=== PATIENT | male | born 1965 | race Caucasian/White ===

== ENCOUNTER 2023-06-07 08:24 | Observation (INO) ==
--- NOTE | 2023-05-04 15:18 | PAT Medication Instructions ---
Medication Instructions Date of Service May 04, 2023 Home Medications losartan 25 mg tablet 50 mg PO QAM multivitamin 1 tab PO QAM rosuvastatin 20 mg tablet 20 mg PO QAM DO NOT take the morning of surgery losartan 25 mg tablet 50 mg PO QAM multivitamin 1 tab PO QAM Take morning of surgery With a small sip of water, OTHERWISE NOTHING TO EAT OR DRINK AFTER MIDNIGHT: rosuvastatin 20 mg tablet 20 mg PO QAM Other Notes If you have any questions please call us at [phone] or [phone] or [phone] or [phone]
--- NOTE | 2023-05-12 14:39 | Anesthesiology Consultation ---
Date of Service May 12, 2023 Assessment & Plan (1) Encounter for pre-operative examination: - Infectious disease screening: Per assessment on 05/12/23: No known infectious disease contacts or current infectious disease symptoms. No noted recent Covid positive test result. - Outpatient joint assessment: Pt currently scheduled for inpatient pathway. If surgeon requests review for outpatient joint pathway, patient is an acceptable candidate for outpatient joint program from anesthesia standpoint pending surgeon's office assessment that patient is motivated, has good support and completes [facility] Day Joint Program preop requirements. - Cardiology visit (03/21/23): "Possible future hip surgery. Estimated risk of adverse outcome with non-cardiac surgery is low. Blood pressure control mandated prior to surgery." > BP 114/78 at PAT visit 05/12/23. Chart Review Chart Review: Acceptable Risk for Surgery and Patient seen in Pre Admission Testing Teaching & Discussion Pre-Anesthesia Teaching/Discussion Notes: Instructed NPO after midnight before surgery,except medications with 15 cc of water. Medication instructions provided according to the [facility] guidelines. History Surgery Operation Date: 06/07/23 08:50 Proposed Procedures p Left Total Hip Arthroplasty - Kamaljit Vela MD Height/Weight Height: 5 ft 8 in Weight: 80.9 kg Allergies Allergy/AdvReac Type Severity Reaction Status Date / Time cefazolin [From [facility]] Allergy Unknown Itchiness Verified 05/12/23 14:48 Medications Home Medications Medication Instructions Recorded Confirmed Last Taken losartan 25 mg tablet 50 mg PO QAM 05/02/23 05/02/23 Unknown multivitamin 1 tab PO QAM 05/02/23 05/02/23 Unknown rosuvastatin 20 mg tablet 20 mg PO QAM 05/02/23 05/02/23 Unknown Past Medical History Medical History Ascending aorta enlargement Echo 11/2022: Proximal ascending thoracic aorta mildly enlarged (4.0 cm) History of COVID-2021, symptoms resolved Hyperlipidemia Hypertension Osteoarthritis of left hip Exercise / Class Metabolic Activity II 4-5 Yardwork/Stairs/Walk up hill (one FS: No CP, no SOB) Past Surgical History Surgical History History of colonoscopy History of dental surgery x2 dental implants History of meniscectomy of left knee Hx of meniscectomy of right knee Past Anesthesia History No Hx of Anesthesia Complications and No Family Hx of Anesthesia Complications History of PONV No Hx of PONV and No Hx of Motion Sickness Social History Smoking Status: Former smoker Do You Dip or Chew Tobacco: No Smoking End Date: Quit 26 years ago (Hx 1 PPD) Hx Alcohol Use: Yes alcohol intake frequency: a few times a week Hx Substance Use: No substance use type: does not use Review of Systems Patient denies chest pain, shortness of breath, dyspnea on exertion, fever, chills, cough, wheezing, palpitations. Physical Exam Vital Signs BP 114/78 P 60 TEMP 98.0 SP02 97%RA RESP 16 Physical Full cervical extension range of motion. Full TMJ range of motion. TMD > 3.5 finger breaths Mallampati Score 1 Dentition: intact, + crowns, + implants (including upper front left) Lungs: clear throughout to auscultation Cardiac: regular rate and rhythm, no murmurs noted Spine: normal Carotid arteries: negative bruit Extremities: no LE edema Lab Results Anesthesia Preop Results Results Anesthesia Widget: WBC 6.64 K/ul (4.8-10.8) 05/12/23 Hgb 14.3 g/dl (14.0-18.0) 05/12/23 Hct 41.4 % (42.0-52.0) L 05/12/23 Plt 305 K/uL (130-400) 05/12/23 Na 138 mmol/L (136-145) 05/12/23 K 3.8 mmol/L (3.5-5.1) 05/12/23 Cl 104 mmol/L (98-107) 05/12/23 CO2 26 mmol/L (21-32) 05/12/23 BUN 12 mg/dl (6-23) 05/12/23 Creat 0.82 mg/dl (0.6-1.4) 05/12/23 Glucose Level 86 mg/dl (70-99(Fasting)) 05/12/23 PT 10.6 Seconds (9.0-12.0) 05/12/23 PTT 29 Seconds (21-31) 05/12/23 INR 1.0 (0.9-1.1) 05/12/23 Blood Type A Positive 05/12/23 Antibody Screen NEGATIVE 05/12/23 Testing Electrocardiogram Date: 03/21/23 Findings: + NSR @ (64) Chest X-Ray Date: 05/12/23 FINDINGS: The lungs are clear. Cardiac silhouette is top normal in size. No pleural effusions. No pneumothorax. IMPRESSION: No acute process. Echocardiogram Date: 12/02/22 LVEF 55-59%. LV wall motion is normal. Mildly increased concentric LV wall thickness. Grade 1 diastolic dysfunction. No significant valvular disease. Proximal ascending thoracic aorta mildly enlarged (4.0 cm). Stress Test Date: 03/26/19 Type: exercise Stress echo was negative for inducible ischemia. Exercise capacity is above average. Frequent PVCs recorded near peak exercise. 96% MPHR. 13.2 METS. Rest study: LVEF 55-59%. No significant valvular disease. Aortic root and proximal ascending aorta are borderline enlarged.
[~2023-06-07 08:24] MED LIST: BUPIVACAINE 0.5 % 5 MG/1 ML PF 10ML VIAL ONE
[2023-06-07] MEDS: dexAMETHasone 4 MG TAB PO SCH (09:29)
[2023-06-07] MEDS: CeleBREX 200 MG CAP PO SCH (09:29)
[2023-06-07] MEDS: FAMOTIDINE 20 MG TAB PO SCH (09:29)
[2023-06-07] MEDS: ACETAMINOPHEN 500 MG TAB PO SCH ×2 (09:29→15:44)
[2023-06-07] MEDS: METOCLOPRAMIDE HCL 10 MG TABLET PO SCH (09:29)
[2023-06-07] MEDS: LR 500ML BOLUS, THEN 15ML/HR IV SCH (09:30)
[2023-06-07] MEDS: Scopolamine 1 MG TDSY TD SCH (09:30)
[2023-06-07] MEDS: LR 60ML/HR IV SCH (09:31)
--- NOTE | 2023-06-07 09:55 | History & Physical Bridge Note ---
Date of Service June 07, 2023 History & Physical Bridge Note I have examined the patient, reviewed the History & Physical and in the interval since the performance of the History & Physical I have noted the following changes of clinical significance: no changes noted
[2023-06-07] MEDS ORDERED: Nursing to Pharmacy Communication SCH (10:15)
[2023-06-07] MEDS ORDERED: fentaNYL citrate PF 100 MCG/2 ML VIAL ONE (11:43)
[2023-06-07] MEDS ORDERED: MIDAZOLAM HCL 1 MG/ML 2ML VIAL ONE (11:43)
[2023-06-07] MEDS ORDERED: ONDANSETRON INJ 2 MG/ML 2 ML VIAL ONE (11:44)
[2023-06-07] MEDS ORDERED: DEXAMETHASONE SOD INJ 4 MG/ML VIAL ONE (11:44)
[2023-06-07] MEDS ORDERED: PROPOFOL IV EMULSION 10 MG/ML 20 ML VIAL IV ONE ×3 (11:44→12:40)
[2023-06-07] MEDS ORDERED: ROCURONIUM BROMIDE 10 MG/ML 5 ML VIAL IV ONE (11:44)
[2023-06-07] MEDS ORDERED: LIDOCAINE 2% 2 ML VIAL/AMP(20MG/ML) INFIL ONE (11:44)
[2023-06-07] MEDS: TRANEXAMIC ACID 1,000 MG **IV Pre-op IV SCH (11:54)
--- OUTSIDE RECORDS SUMMARY | 2023-06-07 12:21 | External Medical Summary | Summary of Care ---
Author Name Unknown Organization [facility] Address [address] [place] [address] Phone [phone] Care Team Providers Care Education Site Manager Name Role Phone Gary Fisher Primary Care Provider Reason for Visit * Reason Comments Acute Pt here for a sunbur n from 2 weeks ago. Pt states that it is better now. Concern was that the burn was located in the area that he applied sun block to. Encounter Details Date Type Department Care Team (Late st Contact Info) Description 05/13/2023 11:00 AM EDT Office Visit Family [facility] [address] [facility] [place] [address] Estrella Johnston CRNP [address] [facility] [place] [id number] Skin irritation*; HTN, goal below 140/90 Allergies Active Allergy Reactions Criticality Noted Date Comments Cefazolin Sodium Itching 04/08/2010 rash documented as of this encounter (statuses as of 05/13/2023) Medications Medication Sig Dispensed Refills Start Date End Date Status MULTIVITAMINS PO CAPS None Entered 0 Active Rosuvastatin Calcium 20 MG Oral Tablet (Crestor) Take 1 Tablet by mouth daily. 30 Tablet 11 04/30/2022 Active Benzonatate 100 MG Oral Capsule (Tessalon Perles)Indications :Viral URI with cough Take 1 Capsule by mouth 3 times a day as needed for Cough. Do not cut, crush, or chew. 50 Capsule 1 01/04/2023 Active Additional Information Patient not taking.Reported on 03/21/2023 Losartan Potassium 50 MG Oral Tablet (Cozaar)Indication s:HTN, goal below 140/90 Take 1 Tablet by mouth in the morning. 90 Tablet 3 03/21/2023 Active Triamcinolone Acetonide 0.1 % External Cream (Aristocort)Indica tions:Skin irritation Apply topically to affected area 2 times a day. 45 g 5 05/13/2023 Active documented as of this encounter (statuses as of 05/13/2023) Active Problems Problem Noted Date Diagnosed Date Hip pain, left 03/17/2021 Testicular pain, left 03/17/2021 Family history of ischemic heart disease 021 Dyslipidemia, goal LDL below 70 05/14/2020 Family history of cardiomyopathy 05/14/2020 HTN, goal below 140/90 05/14/2020 ADVANCE DIRECTIVE INFORMATION 01/27/2005 Overview: No, Advance Directive brochure given to patient. Major depressive disorder 01/27/2005 Overview: ICD-10 update of inactive term documented as of this encounter (statuses as of 05/13/2023) Resolved Problems Problem Noted Date Diagnosed Date Resolved Date Dyslipidemia, goal to be determined 02/13/2009 12/23/2020 Overview: Per Lipid Taxonomy. Mixed dyslipidemia 03/15/2005 9 Overview: Per Lipid Taxonomy. Major depressive disorder 02/15/2005 Overview: dr. cox (psychiatrist) at [facility] ICD-10 update of inactive term ACUTE PHARYNGITIS 07/14/2004 01/27/2005 DYSFUNCT EUSTACHIAN TUBE 07/14/200409/2016 DYSEQUILIBRIUM 07/14/2004 07/05/2016 S/P STREP SORE THROAT 07/14/20042004 NO SIGNIFICANT MED HX 11/30/20012004 documented as of this encounter (statuses as of 05/13/2023) Immunizations Name Administration Dates Next Due Covid-19 Ad26, Single Dose (Genie/J&J) 05/11/2020 H1N1 2009 Influenza, IM 01/28/2009 Seasonal Influenza, PF, 6 M & above, IM , (FluLaval or Fluzone) 12/23/2022 Seasonal Influenza, Quadriva lent, No Preserve, IM 12/05/2020,12/16/2017,12/20/2014 Seasonal Influenza, Split, I IV3, With Preserve, Inj 12/12/2012,12/06/2011,01/05/2010, 0 10 TDAP (age 11 and older)(Adacel) 03/19/2009,08/23 documented as of this encounter Social History Tobacco Use Types Packs/Day Years Used Date Smoking Tobacco: Former Cigarettes 1 10 1 - 11/30/1996 Smokeless Tobacco: Never Tobacco Cessation:Counseling Given: Not Answered Alcohol Use Standard Drinks/Week Comments Yes 0 (1 standard drink = 0.6 oz pur e alcohol) once a week PHQ-2 Answer Date Recorded PHQ-2 Score 6 04/12/2019 Hunger Vital Sign Answer Date Recorded Within the past 12 months, y ou worried that your food would run out before you got the money to buy more. Never true 05/12/19 24 Within the past 12 months, t he food you bought just didn't last and you didn't have money to get more. Never true 05/12/2023 Sex and Gender Information Value Date Recorded Sex Assigned at Male 05/12/2023 9:30 PM EDT Gender Identity Male 05/12/2023 9:30 PM EDT Sexual Orientation Straight 05/12/2023 9: 30 PM EDT Job Start Date Occupation Industry Not on file Not on file Not on file documented as of this encounter Last Filed Vital Signs Vital Sign Reading Time Taken Comments Blood Pressure 124/72 05/13/2023 10:58 AM EDT Pulse 76 05/13/2023 10:58 AM EDT Temperature 36.4 C (97.6 F) 05/13/2023 10:58 AM E DT Respiratory Rate 16 05/13/2023 10:58 AM EDT Oxygen Saturation 96% 05/13/2023 10:58 AM EDT Inhaled Oxygen Concentration - - Weight 80.8 kg (178 lb 3.2 oz) 05/13/2023 10:58 AM EDT Height 172.7 cm (5' 8") 05/13/2023 10:58 AM EDT Body Mass Index 27.1 05/13/2023 10:58 AM EDT documented in this encounter Progress Notes * Estrella Johnston CRNP - 05/13/2023 11:09 AM EDT Images from the original note were not included. Follow up Family Medicine Visit History of Present Illness Fred Capone is a very pleasant 57 year old male with PMH listed below presenting with acute. He was on vacation, sitting in the pugh without T shirt for 3 hours. After exposed to sun, he applied Neutrogena mineral Suncreen on arms and face/neck and immediately felt burning. Used same Suncreen last year without any issue. He continue to use sunscreen every day on vacation due to expose to sun. No blisters but painful and burning sensation. Whole skin sloughed off. Prescribed prednisone, silvadene at urgent care, but Rx never got filled so didn't take any med. 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 Tobacco Use Smoking status: Former Current packs/day: 0.00 Average packs/day: 1 pack/day for 10.0 years (10.0 ttl pk-yrs) Types: Cigarettes Start date: 11/30/1986 Quit date: 11/30/1996 Years since quittin.4 Smokeless tobacco: Never Vaping Use Vaping Use: Never used Substance and Sexual Activity Alcohol use: Yes Comment: once a week Drug use: No Sexual activity: Yes Partners: Female Other Topics Concern Not on file Social History Narrative Not on file Social Determinants of Health Financial Resource Strain: Not on file Food Insecurity: No Food Insecurity (05/12/2023) Hunger Vital Sign Worried About Running Out of Food in the Last Year: Never true Ran Out of Food in the Last Year: Never true Transportation Needs: Not on file Physical Activity: Not on file Stress: Not on file Social Connections: Not on file Intimate Partner Violence: Not on file Housing Stability: Not on file PMH: Past Medical History: Diagnosis Date Depressive disorder, not elsewhere classified 2004 dr. cox (psychiatrist) at [facility] Infectious mononucleosis 1987 Dehydration, hospitalized Plantar fasciitis Past Surgical History: Procedure Laterality Date COLONOSCOPY, DIAGNOSTIC (RECTUM) 03/21/2012 COLONOSCOPY FLEXIBLE PROXIMAL DIAGNOSTIC performed by Scott Arias MD at [facility] COLONOSCOPY, DIAGNOSTIC (RECTUM) 09/07/2016 normal, repeat 5 yrs/COLONOSCOPY FLEXIBLE PROXIMAL DIAGNOSTIC performed by Brad Torres DO at [facility] KNEE CARTILAGE, MED/LATERAL 01/30/2007 left medial partial meniscectomy, arthroscopic Outpatient Medications Marked as Taking for the 05/13/23 encounter (Office Visit) with Estrella Johnston CRNP Medication Sig Losartan Potassium 50 MG Oral Tablet (Cozaar) Take 1 Tablet by mouth in the morning. Rosuvastatin Calcium 20 MG Oral Tablet (Crestor) Take 1 Tablet by mouth daily. MULTIVITAMINS PO CAPS None Entered Review of patient's allergies indicates: Allergen Reactions Ancef [Cefazolin Sodium] Itching rash Most Recent Immunizations Administered Date(s) Administered Covid-19 Ad26, Single Dose (Genie/J&J) 05/11/2020 H1N1 2009 Influenza, IM 01/28/2009 Seasonal Influenza, PF, 6 M & above, IM , (FluLaval or Fluzone) 12/23/2022 Seasonal Influenza, Quadrivalent, No Preserve, IM 12/05/2020 Seasonal Influenza, Split, IIV3, With Preserve, Inj 12/12/2012 TDAP (age 11 and older)(Adacel) 03/19/2009 Review of Systems: Physical Exam BP 124/72 (BP Site: Left Arm, BP Position: Sitting, BP Cuff Size: Regular) | Pulse 76 | Temp 36.4 C (97.6 F) (Tympanic) | Resp 16 | Ht 1.727 m (5' 8") | Wt 80.8 kg (178 lb 3.2 oz) | SpO2 96% | BMI 27.10 kg/m | BSA 1.97 m Physical Exam Skin: Comments: Erythema above area. No drainage or pustule. Extensive scaling noted on b/l forearms. Seepic. Assessment and Plan 1. Skin irritation Secondary to sunburn/contact dermatitis to sunscreen No signs of skin infection today - Triamcinolone Acetonide 0.1 % External Cream (Aristocort); Apply topically to affected area 2 times a day. Dispense: 45 g; Refill: 5 2. HTN, goal below 140/90 Cont losartan 50 mg Losartan increased from 25 to 50, but Iess likely source of skin abnormality as no systemic effectsnoted Wrap-Up I have advised the patient to call our office with any worsening or new symptoms. I spent a total of 20-29 minutes (exact time 25 mins) on the date of service in preparation, delivery, and documentation of the care provided to Fred Capone excluding any time spent in the performance of separately billed services. Estrella Johnston, MSN, EULA [facility] documented in this encounter Plan of Treatment Upcoming Encounters Date Type Department Care Team (Late st Contact Info) Description 12/05/2023 8:00 AM EDT Imaging Radiology [address] [address] Scheduled Procedures Name Priority Associated Diagnoses Date/Ti me COLONOSCOPY FLEXIBLE PROXIMA L DIAGNOSTIC Recall History of colonic polyps Health Maintenance Due Date Last Done Comments Albumin/Creatinine Ratio 09/30/1983 Hepatitis C Screening 09/30/1983 Hepatitis B (1 of 3 - 19+ 3-dose series) 1984 Zoster Vaccines (1 of 2) 09/30/2015 Depression Screening 04/12/2020 04/12/2019 COLONOSCOPY-EVERY 5 YRS AGES 18-100 09/07/2021 09/07/2016, 09/07/2016, 03/21/2012, Additional history exists GFR 01/12/2022 01/12/2021, 03/01, 12/26/2013, Additional history exists COVID-19 Vaccine (2 - 2022- season) 2022 05/11/2020 Diabetes Screening 01/13/2024 01/12/2021, 1 03/14/2020, 03/19/2019, Additional history exists Lipid Panel 12/03/2027 12/02/2022, 12, 01/12/2021, Additional history exists DTaP,Tdap,and Td Vaccines (4 - Td or Tdap) 12/17/2028 12/17/2018, 03/19/2009, 08/23/2008 Influenza Vaccine (FLU shot) Completed , 12/05/2020, 12/30/2019, Additional history exists GARDASIL-HPV IMMUNIZATION SERIES Aged Out No longer eligible based on patient's age to complete this topic MENINGOCOCCAL (MENACTRA/MENVEO) Aged Out No longer eligible based on patient's age to complete this topic Pneumococcal Vaccine: Pediatrics (0 to 5 Years) and At-Risk Patients (6 to 64 Years) Aged Out No longer eligible based on patient's age to complete this topic documented as of this encounter Medical Devices Not on filedocumented as of this encounter Visit Diagnoses Diagnosis Skin irritation- Primary Unspecified disorder of skin and subcutaneous tissue HTN, goal below 140/90 Unspecified essential hypertension documented in this encounter Care Teams Education Site Manager Relationship Specialty Start Date End Date Gary Fisher DO [address] [place] [address] PCP - General Family Medicine 12/23/20 documented as of this encounter
--- OUTSIDE RECORDS SUMMARY | 2023-06-07 12:21 | External Medical Summary | Summary of Care ---
Author Name Unknown Organization [facility] Address [address] [facility] [place] [address] Phone [phone] Care Team Providers Care Director For [employer] Name Role Phone Gary Fisher Primary Care Provider Reason for Visit * Reason Comments Medication Refill Encounter Details Date Type Department Care Team (Late st Contact Info) Description 05/23/2023 Refill Cardiology, [facility] [address] [place] [address] Rita Blum PA-C [address] [place] [address] Dyslipidemia, goal LDL below 70* Allergies Active Allergy Reactions Criticality Noted Date Comments Cefazolin Sodium Itching 04/08/2010 rash documented as of this encounter (statuses as of 05/23/2023) Medications Medication Sig Dispensed Refills Start Date End Date Status MULTIVITAMINS PO CAPS None Entered 0 Active Benzonatate 100 MG Oral Capsule (Tessalon Perles)Indicatio ns:Viral URI with cough Take 1 Capsule by mouth 3 times a day as needed for Cough. Do not cut, crush, or chew. 50 Capsule 1 01/04/2023 Active Additional Information Patient not taking.Reported on 03/21/2023 Losartan Potassium 50 MG Oral Tablet (Cozaar)Indicati ons:HTN, goal below 140/90 Take 1 Tablet by mouth in the morning. 90 Tablet 3 03/21/2023 Active Triamcinolone Acetonide 0.1 % External Cream (Aristocort)Sofia cations:Skin irritation Apply topically to affected area 2 times a day. 45 g 5 05/13/2023 Active Rosuvastatin Calcium 20 MG Oral Tablet (Crestor)Indicat ions:Dyslipidemi a, goal LDL below 70 Take 1 Tablet by mouth daily. 90 Tablet 3 05/23/2023 Active Rosuvastatin Calcium 20 MG Oral Tablet (Crestor) Take 1 Tablet by mouth daily. 30 Tablet 11 04/30/2022 Discontinue d(Refill) documented as of this encounter (statuses as of 05/23/2023) Active Problems Problem Noted Date Diagnosed Date [...] as of this encounter (statuses as of 05/23/2023) Resolved Problems Problem Noted Date Diagnosed Date Resolved Date Dyslipidemia, goal to be determined 02/13/2009 12/23/2020 Overview: Per Lipid Taxonomy. Mixed dyslipidemia 03/15/2005 9 Overview: Per Lipid Taxonomy. Major depressive disorder 02/15/2005 Overview: dr. cox (psychiatrist) at [facility] ICD-10 update of inactive term ACUTE PHARYNGITIS 07/14/2004 01/27/2005 DYSFUNCT EUSTACHIAN TUBE 07/14/200409/2016 DYSEQUILIBRIUM 07/14/2004 07/05/2016 S/P STREP SORE THROAT 07/14/20042004 NO SIGNIFICANT MED HX 11/30/20012004 documented as of this encounter (statuses as of 05/23/2023) Immunizations Name Administration Dates Next Due Covid-19 [...] 10 1 - 11/30/1996 Smokeless Tobacco: Never Alcohol Use Standard Drinks/Week Comments Yes 0 [...] on file documented as of this encounter Miscellaneous Notes * Telephone Encounter - Rita Blum PA-C - 05/23/2023 1:19 PM EDTSigned Prescriptions: Disp Refills Rosuvastatin Calcium 20 MG Oral Tablet (Cr*90 Tab*3 Sig: Take 1 Tablet by mouth daily. Authorizing Provider: RITA BLUM * Telephone Encounter - Temi Basilio CMA - 05/23/2023 1:17 PM EDTPending Prescriptions: Disp Refills Rosuvastatin Calcium 20 MG Oral Tablet (Cr*90 Tab*3 Sig: Take 1 Tablet by mouth daily. * Telephone Encounter - Temi Basilio CMA - 05/23/2023 1:17 PM EDT Did you pend patient's preferred pharmacy and medication before forwarding?yes Pharmacy: [facility] Pending Prescriptions: Disp Refills Rosuvastatin Calcium 20 MG Oral Tablet (C*90 Tab*3 Sig: Take 1 Tablet by mouth daily. Last Visit: 03/21/2023 (in office), Visit date not found (telemedicine) Next Visit: Visit date not found If no future appointments scheduled, and last appointment is greater than a year ago, please schedule patient for a follow-up appointment Last date the medication was ordered: 04-30-2022 Is this request for a controlled substance?No Urine Drug Screen:No results found for this or any previous visit. Patient Phone Numbers Labs: Lab Results Component Value Date/Time CREAT 1.0 01/12/2021 07:48 AM CREAT 1.0 03/19/2019 08:06 AM POTASSIUM 4.6 01/12/2021 07:48 AM POTASSIUM 4.6 03/19/2019 08:06 AM TSH 2.47 12/26/2013 04:57 PM LDLCALC 85 12/02/2022 08:01 AM LDLCALC 143 (H) 03/19/2019 08:06 AM LDLDIRECT NOT APPLICABLE 03/19/2019 08:06 AM LDLDIRECT 113 (H) 04/03/2009 12:46 PM ALT 27 12/02/2022 08:01 AM ALT 25 03/19/2019 08:06 AM HGBA1C 5.8 (H) 01/12/2021 07:48 AM documented in this encounter Plan of Treatment Upcoming Encounters Date Type Department Care Team (Late st Contact Info) Description 12/05/2023 8:00 AM EDT Imaging Radiology [address] [place] [address] Scheduled Procedures Name Priority Associated Diagnoses [...] Additional history exists COVID-19 Vaccine (2 - 2022-24 season) 2022 05/11/2020 Diabetes Screening 01/13/2024 01/12/2021, 1 03/14/2020, 03/19/2019, Additional history exists Lipid Panel 12/03/2027 12/02/2022, 12/, 01/12/2021, Additional history exists DTaP,Tdap,and Td Vaccines [...] as of this encounter Visit Diagnoses Diagnosis Dyslipidemia, goal LDL below 70- Primary Other and unspecified hyperlipidemia documented in this encounter Care Teams Director For [employer] Relationship Specialty Start Date End Date Gary Fisher DO [address] [place] [id number] PCP - General Family Medicine 12/23/20 documented as of this encounter
[2023-06-07] MEDS: ceFAZolin 2,000 MG/15 ML IV PUSH IV ONE (12:28)
[2023-06-07] MEDS ORDERED: PHENYLEPHRINE 100MCG/ML 10ML SYR IV ONE (12:42)
[2023-06-07] MEDS ORDERED: ePHEDrine sulfate 50 MG/5 ML SYR ONE (12:51)
[2023-06-07] MEDS: BUPIVACAINE/EPINEPHRINE 0.5% MPF 1:200,000 30 ML VIAL ONE (13:05)
--- NOTE | 2023-06-07 13:54 | Operative Report ---
PG Post Operative Report Pre & Post Diagnosis Operation Date: 06/07/23 10:40 Pre-Op Diagnosis: Left Hip Advanced Degenerative Joint Disease Post-Op Diagnosis: Left Hip Advanced Degenerative Joint Disease I identified the patient and participated in the time-out.: Yes Procedure Operation Date: 06/07/23 10:40 Actual Procedures p Left Total Hip Arthroplasty, Uncemented(Left) - Kamaljit Vela MD Surgeon Kamaljit Vela MD Scheduling Clerk Jose Vivar PA-C Estimated Blood Loss 100 Findings Consistent with Post-Op Diagnosis Operative findings were advanced left hip DJD. He did grade 4 [id number] disease the femoral head and acetabulum. Moderate-sized joint effusion. Specimens Left femoral head sent for pathology. 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 X-rays show advanced hip arthritis with significant progression over the past year. He elected proceed with total hip arthroplasty. Description of Procedure Operative implants consist of: 1. Biomet G7 size 56 mm acetabular shell. 2. 6.5 cancellous acetabular screws 1 of 35 mm length and 1 to 25 mm length. 3. Bailey hole ply cutter. 4. Highly cross-linked polyethylene liner with a 56 mm outer diameter and 36 mm inner diameter. 5. DePuy Corail size 10 KLA femoral stem. 6. +5/36 mm ceramic articular ball. The patient was taken the operating, identified, placed on the operating table in the supine position but all contact areas were appropriately padded. IV antibiotics tried by anesthesia team. A spinal anesthetic and been implemented holding area. Patient is then placed in the right lateral decubitus position. An axillary roll was placed. Stulberg hip positioner was used for positioning. The left hip and leg were then prepped and draped in usual sterile fashion. A posterolateral approach to the left hip was then performed to a curvilinear incision centered over the greater trochanter. Sharp dissection was carried through subcutaneous tissue down of the IT band gluteal fascia but the IT band gluteal fascia was sized longitudinally in line with skin incision. The unde rlying greater bursa was excised. The piriformis and external rotators along with the posterior hip joint capsule were then released from the posterior aspect the hip as a single layer. Hip was internally rotated and dislocated. A femoral neck osteotomy cut was made with Final Cut 15 mm above the lesser trochanter. Femoral head was removed and sent for pathology. The femur was retracted anteriorly. Attention drawn the acetabulum. The acetabular labrum was excised. The pulmonary fat was excised. Sequential reaming the acetabular was then performed again with a size 45 reamer and progre ssing up to a 55 reamer. I then reamed a little bit with a 56 reamer and then placed a 56 mm Biomet cup in about 40 degrees lateral opening and 20 degrees of anteversion. It was fixed with two 6.5 cancellous acetabular screws. Trial liner was placed. Attention drawn the femur. The proximal femur was entered with a [employer] cutter followed by canal finder. I then broached beginning with size 8 progressing up to a 10. We got excellent fitted to 10. I did not think I could get 11 down safely. That we trialed the hip and the +5 articular ball seem to recreate soft tissue tension appropriately . It was fully stable full extent chin and external rotation and flexion to 90 degrees internal Tatian over 50 degrees. Leg lengths seemed pretty equal. I was aware that may lengthen him slightly as he is got hip disease on the other side will likely need that done in the future. We elect to place these implants. All trial implants were removed. An apex hole ply cutter was placed. Highly crop farmers ss-linked polyethylene liner was placed. A size 10 KLA femoral stem was impacted in position. +5/36 mm ceramic articular ball was placed. Hip was located and once again found to be stable. Attention drawn toward closing. The wound was irrigated coconuts pulsatile lavage solution. I did inject locally with 60 cc of half percent Marcaine with epinephrine. Patient did receive 1 g tranexamic acid at the beginning of the surgery. The piriformis injection rotators along with the posterior hip joint capsule were then repaired as a single layer with #2 Tycron suture through drill holes in the trochanter. The IT band gluteal fascia then closed in 1 PDS suture running fashion. Subcutaneous tissue was then closed in 2 layers the deep layer #1 Vicryl suture the subcutaneous tissue with 2-0 Dexon suture in a buried interrupted fashion the skin was closed skin tom. Leg was then cleaned and dried a sterile dressing with Xeroform, 4 fours, ABD pad and foam tape was applied. The patient then transferred to the recovery room in stable condition. Patient tolerated the procedure well and there were no complications. Jose Vivar, my physician actuarial assistant, was present for the entire procedure. His assistance was essential and required for appropriate patient positioning, prepping and draping, surgical exposure, performing the technical details of the operation, placement the implants, closure of the wound, and placement of the sterile bandage. I attest to the content of the Intraoperative Record and any orders documented therein. Any exceptions are noted below.
--- NOTE | 2023-06-07 14:33 | XRay Report ---
AP PELVIS, CROSSTABLE LATERAL LEFT HIP History: Left total hip arthroplasty. Degenerative arthritis. Postop. FINDINGS: The patient is status post a left total hip arthroplasty. The hardware is intact. No fractu re or dislocation. Skin tom are in place. IMPRESSION: Left total hip arthroplasty. No evidence for hardware complication. ACT 112: Negative or not required by law. Electronically signed by: Sheng Harmon M.D. 06/07/2023 2:32 PM
--- NOTE | 2023-06-07 14:52 | Anesthesiology Progress Note ---
Date of Service June 07, 2023 Anesthesia Post Procedure Vital Signs Vital Signs: Temp Pulse Resp BP Pulse Ox O2 Del Method O2 Flow Rate 06/07/23 14:45 76 20 129/92 97 Room Air 06/07/23 14:35 83 18 132/94 98 Room Air 06/07/23 14:25 36.3 C L 81 16 139/90 95 Room Air 06/07/23 14:15 79 12 135/82 95 Room Air 06/07/23 14:05 77 16 130/77 100 Oxymask 4 06/07/23 13:55 87 16 146/88 H 95 Oxymask 4 06/07/23 13:45 36.2 C L 100 H 16 130/75 98 Oxymask 4 06/07/23 08:57 36.8 C 69 20 147/90 H 100 Room Air Transfer of Care Handoff Completed per policy Notes Mental Status: alert / awake / arousable Patient Amnestic to Procedure: Yes Nausea / Vomiting: adequately controlled Pain: adequately controlled Airway Patency, RR, SpO2: stable & adequate BP & HR: stable & adequate Hydration State: stable & adequate Neuraxial Anesthesia: was administered and sensory block is resolving Anesthetic Complications: no major complications apparent
[2023-06-07] MEDS ORDERED: METOCLOPRAMIDE HCL INJ 5 MG/ML 2 ML VIAL IV PRN (15:02)
[2023-06-07] MEDS ORDERED: ACETAMINOPHEN 500 MG TAB PO SCH (15:02)
[2023-06-07] MEDS ORDERED: MAGNESIUM HYDROXIDE SUSP 30 ML UDC PO PRN (15:02)
[2023-06-07] MEDS ORDERED: NALOXONE HCL 0.4 MG/1 ML VIAL/CARP IV PRN (15:02)
[2023-06-07] MEDS ORDERED: bisacodyL 10 MG SUPP PR PRN (15:02)
[2023-06-07] MEDS ORDERED: HYDROmorphone INJ 0.5 MG/0.5 ML SYR IV PRN (15:02)
[2023-06-07] MEDS ORDERED: ALUMINUM/MAGNESIUM SUSP 30 ML UDC PO PRN (15:02)
[2023-06-07] MEDS: SODIUM CHLORIDE 0.9% 1,000 ML IV SCH (15:12)
[2023-06-07] MEDS: Scopolamine CHECK PATCH PLACEMENT SCH (15:13)
[2023-06-07] MEDS: KETOROLAC 30 MG/ML VIAL IV SCH (15:45)
[2023-06-07] MEDS: ASCORBIC ACID 500 MG TAB PO SCH (17:26)
[2023-06-07] MEDS: traMADol HCL 50 MG TABLET PO PRN (18:04)
[2023-06-07] MEDS: TRANEXAMIC ACID / 0.7% NACL 1,000 MG/100 ML BAG IV SCH (20:35)
[2023-06-07] MEDS: diphenhydrAMINE Capsule 25 MG CAP PO PRN (20:55)
[2023-06-07] MEDS: DOCUSATE SODIUM 100 MG CAP PO SCH (20:57)
[2023-06-07] MEDS: SENNA 8.6 MG TAB PO SCH (20:57)
[2023-06-07] MEDS: ASPIRIN 81 MG ECTAB PO SCH (20:57)
[2023-06-07] MEDS ORDERED: SENNA 8.6 MG TAB PO SCH (21:00)
[2023-06-07] MEDS: ceFAZolin 2000MG 2,000 MG/15 ML SYR IV SCH (21:13)
[2023-06-07] MEDS: ONDANSETRON INJ 2 MG/ML 2 ML VIAL IV PRN (21:17)
[2023-06-08 06:45] LABS: Basophils # (auto) 0.01 K/uL (0.00-0.20); Basophils % (auto) 0.1 %; Hematocrit (blood only) 36.8 % (42.0-52.0); Immature Granulocytes # (auto) 0.07 K/uL (0.01-0.20); Immature Granulocytes % (auto) 0.6 %; Lymphocytes # (auto) 1.47 K/uL (1.20-3.40); Lymphocytes % (auto) 12.3 %; Mean Corpuscular Hemoglobin 28.9 pg (25.0-34.0); Mean Corpuscular Hgb Conc 32.6 g/dL (32.0-36.0); Mean Corpuscular Volume 88.7 fL (80.0-100.0); Mean Platelet Volume 9.1 fL (9.4-12.4); Monocytes # (auto) 0.89 K/uL (0.11-0.59); Monocytes % (auto) 7.5 %; Neutrophils # (auto) 9.49 K/uL (1.40-6.50); Neutrophils % (auto) 79.5 %; Platelet Count 231 K/uL (130-400); RDW Coefficient of Variation 12.4 % (11.5-14.5); RDW Standard Deviation 40.5 fL (36.4-46.3); Red Blood Count 4.15 M/uL (4.70-6.10); White Blood Count 11.93 K/ul (4.8-10.8)
[2023-06-08 07:07] LABS: BUN Creatinine Ratio 16.5 (10-20); Calcium 8.7 mg/dl (8.6-10.3); Creatinine Clr Calc Pharmacy 99.8 ml/min; Est GFR (African American) 115.5 ml/min; Est GFR (Non-African American) 99.7 ml/min; Potassium 4.4 mmol/L (3.5-5.1)
[2023-06-08] MEDS: ROSUVASTATIN CALCIUM 20 MG TAB PO SCH (08:51)
[2023-06-08] MEDS: TAMSULOSIN HCL 0.4 MG CAP PO SCH (08:51)
[2023-06-08] MEDS: MULTIVITAMIN TAB PO SCH (08:51)
[2023-06-08] MEDS: LOSARTAN POTASSIUM 50 MG TAB PO SCH (08:52)
[2023-06-08] MEDS: dexAMETHasone 10 MG in SYRINGE 0 ML IV SCH (08:54)
[2023-06-08] MEDS ORDERED: NON-FORMULARY MEDICATION (Multivitamin Tablet) PO SCH (09:00)
--- NOTE | 2023-06-08 09:36 | Orthopedic Progress Note ---
Date of Service June 08, 2023 Assessment & Plan (1) Status post left hip replacement: Overall, he is doing quite well today with good pain control to the left hip. He will continue working with physical therapy this morning to work on ambulation and range of motion exercises. He is on aspirin for DVT prophylaxis. He can be discharged home later this morning pending formal physical therapy evaluation and recommendations. He will follow-up with Dr. Vela in 2 to 3 weeks for postoperative management. Subjective Ruby Duran was seen and evaluated this morning working with physical therapy in no apparent distress. He notes that his pain is well-controlled to the left hip. He noted that prior to physical therapy he has been up and out of bed with no significant issues. He notes that what he is doing currently with physical therapy is not causing him any significant discomfort. He denies any other concerns today. Review of Systems All systems reviewed & are unremarkable except as noted in HPI & below. Physical Exam . On physical examination of the left hip, dressings are clean, dry, intact. His leg is out in full extension. He has active plantarflexion dorsiflexion of the left ankle. +2 DP and PT pulses. Less than 2-second capillary refill. Normal sensation. Neurovascular intact. Results & Data Results & Data Laboratory Results . Diagnostic Findings . Postoperative x-rays of the left hip show prosthesis to be in anatomical alignment with no signs of fracture complication or loosening. PG Care Time/CCT Total # of Minutes Spent Total Time Spent with Patient: Total time spent is greater than 50% in coordination of care (as documented) at patient's floor/unit and/or counseling patient: Coding Level of Care Code 27491 Post Operative Follow-Up Diagnoses Status post left hip replacement Z96.642
--- NOTE | 2023-06-08 09:37 | Discharge Summary ---
Date of Service June 08, 2023 Principal Diagnosis Same as "Discharge Diagnosis" noted below under Discharge Instructions. Discharge Exam . On physical examination of the left hip, dressings are clean, dry, intact. His leg is out in full extension. He has active plantarflexion dorsiflexion of the left ankle. +2 DP and PT pulses. Less than 2-second capillary refill. Normal sensation. Neurovascular intact. Discharge Data Procedures Performed Operation Date: 06/07/23 10:40 Actual Procedures p Left Total Hip Arthroplasty, Uncemented(Left) - Kamaljit Vela MD Hospital Course (1) Status post left hip replacement: On June 07, 2023 Roger arrived at [facility] underwent a left total hip arthroplasty performed by Dr. Vela with no complications. He had a spinal anesthetic. Postoperatively, he was started on aspirin for DVT prophylaxis and transferred to the general orthopedic floor in stable condition. His hospital course was uneventful. On postoperative day #1, his vital signs are stable and his pain was well-controlled. He participated well with physical therapy working on ambulation and range of motion exercises. He was then discharged home in stable condition. He will follow-up with Dr. Vela in 2 to 3 weeks for postoperative management. PG Care Time/CCT Total # of Minutes Spent Total Time Spent with Patient: Total time spent is greater than 50% in coordination of care (as documented) at patient's floor/unit and/or counseling patient: Discharge Plan Discharge Items Patient Disposition: Home - Home Health Services Reason For Visit: Left Hip Degenerative Joint Disease Discharge Diagnosis: Left Hip Replacement Activity: Per Instructions section Activity Comment: Follow/Obey hip precautions at all times. Weightbearing: Full weightbearing Weightbearing Comment: Weightbear as tolerated obeying hip precautions. Non-emergency contact: Surgeon Call non-emergency contact if: you have any medication questions Follow-up/Referrals: Gary Fisher DO [Primary Care Provider] - Diet: Regular Addtl Attending Provider Instructions: ACTIVITY RECOMMENDATIONS: Physical Therapy: * Aggressive physical therapy is not usually needed. You will learn to take care of yourself safely and walk. * Follow the "Hip Precautions Instructions." * In some cases, the social sciences lecturer at the hospital will arrange to have a therapist come to your house for the first couple of weeks to help you learn these skills. * You need to practice on your own or with the help of a family member as needed. * When you learn these skills, most of the therapy can be done on your own. Home Exercise: * You were shown a series of exercises in the hospital. Do these exercises three to four times each day including the exercises you were shown in physical therapy. Walking: * Get up and walk several times each day. For the first four weeks, try not to stand or walk for more than one hour at a time. If you do stand or walk for more than one hour, you will not hurt anything, but your leg will likely swell. * As you feel comfortable, you may change from the walker or crutches to a cane and then to independent walking. MEDICATIONS: New Medicine: * You will likely be taking one or more of these medicines: 1. Tramadol - Take, as directed, when you need it, every six hours to control your pain. 2. Aspirin - Thins your blood to lessen the chance of forming a blood clot. * The most common side effects of pain medicine and iron are nausea and constipation. If nausea or constipation is too much of a problem or if you have any questions about your new medicines or doses, call [facility] at [phone]. We will try to help you manage these issues. "VERY IMPORTANT TO READ AND REVIEW" Pain: * The immediate post-operative period after hip replacement surgery is often quite painful. * You are given a prescription for pain medicine. You should take it, as directed, when you need it, especially before physical therapy and before going to bed. Pain that interferes with sleep is very common and can last several months. * You will likely need pain medicine for the first two to four weeks. It will not stop all of the pain. The pain will lessen and as you feel better, you may change to milder pain medicine such as Tylenol. * The most common side effects of pain medicine are nausea and constipation, so don't take more than you need. SPECIAL CARE INSTRUCTIONS: TEDs/Elastic Stockings: * The white elastic stockings help limit swelling and prevent blood clots from forming in your legs. The more you wear them, the more they work. * Wear them for six weeks. Incision Site Care: * Remove dressing postoperative day 2 and then shower. Keep direct shower pressure off the incision site. * After showering, cover tom with dry gauze and change daily or more frequently if the dressing is getting saturated with drainage. * May completely stop using bandage if wound is dry and no drainage * Crapo are removed between 2 and 3 weeks post-op. If your follow-up appointment is made before 2 weeks, please have your appointment re- scheduled. It is too early to remove the tom. Prevention of Infection: * Take antibiotics one hour before any dental cleaning, dental work, urological procedure, gastrointestinal procedure or any invasive surgery in order to prevent your new joint from getting infected. * You may get the antibiotics from the doctor performing the procedure or you may call our office at before and we will call in a prescription to the pharmacy of your choice. Things to Watch For: * Drainage from the incision site that occurs more than one week after your surgery. * Severely increased leg pain or swelling. * Increased redness at the incision site. * Fever above 102 degrees Fahrenheit. * Unusual chest pain or shortness of breath. * Unusual pain or burning with urination. Call [facility] at with any of the above problems or if you have any questions about your medicines or recovery. FOLLOW UP VISIT: Make an appointment to see your doctor for approximately two weeks after surgery for a progress check and staple removal by calling the office at . Pending Studies at Discharge: No Stand-Alone Forms: My [facility], Smoking Cessation Medications and DC Order Prescriptions: Continued tramadol 50 mg tablet 50 - 100 mg PO Q6 PRN (Reason: pain) Qty: 40 0RF Rx Instructions: Take as needed for pain ondansetron 4 mg tablet,disintegrating 4 mg PO Q8 PRN (Reason: nausea) Qty: 20 1RF Rx Instructions: Take as needed for nausea ketorolac 10 mg tablet 10 mg PO Q6 5 Days Qty: 20 0RF Rx Instructions: Take 4 times per day with food for 5 days to lessen pain and swelling. sennosides [Senokot] 8.6 mg tablet 8.6 mg PO BID 14 Days Qty: 28 0RF Rx Instructions: Take two times a day to prevent/treat constipation acetaminophen [Tylenol Extra Strength] 500 mg tablet 1,000 mg PO TID 30 Days Qty: 180 0RF Rx Instructions: Take 3 times per day to lessen pain. aspirin [Mariusz Low Dose Aspirin] 81 mg tablet,delayed release (DR/EC) 81 mg PO BID 45 Days Qty: 90 0RF Rx Instructions: Take to prevent blood clots. tamsulosin [Flomax] 0.4 mg capsule 0.4 mg PO DAILY Qty: 7 0RF Patient Comments: pt did not take last pm. did not brick picker from pharmacy Rx Instructions: Begin night BEFORE surgery to prevent urinary retention multivitamin Tablet 1 tab PO QAM losartan [Cozaar] 25 mg tablet 50 mg PO QAM rosuvastatin 20 mg tablet 20 mg PO QAM Admission Data Admit Date/Time: 06/07/23 13:47 Attending Provider: Kamaljit Vela Admit Provider: Kamaljit Vela Primary Care Provider: Gary Fisher Other Providers: [facility]
== END 2023-06-08 10:53 | disposition home health service (06) ==
LOC: 3E 08:24 → ASU 08:24